=== PATIENT | male | born 1960 | race Caucasian/White ===

== ENCOUNTER 2024-02-18 09:44 | Outpatient (CLI) | payer OTHER, SELFPAY ==
--- NOTE | ~2024-02-18 | CT_ITS ---
CT Scan of the Chest without Contrast: Clinical Indication: Lung cancer screening, nicotine dependence Technique: Contiguous sections were acquired throughout the chest without intravenous contrast. Dose reduction technique was used on this scan by utilizing automated exposure control and iterative recon struction technique. The dose-length product (DLP) was 78.42 mGy-cm. Findings: There is no evidence of any significant mediastinal, hilar or axillary lymphadenopathy. Severe molina ry artery calcifications. There is no evidence of pleural or pericardial effusion. The lungs are clear. No pulmonary nodules or infiltrates are noted. Probable minimal emphysema. Images through the upper abdomen reveal no abnormalities. Impression: Lung RADS 1: Negative. 12 month follow-up screening CT advised. Reviewed, dictated and finalized at location . Impression: Lung RADS 1: Negative. 12 month follow-up screening CT advised.
== END 2024-02-18 09:45 | disposition home or self-care (01) ==
LOC: MICIMG 09:47
PROVIDERS: PCP Family Medicine Adolescent Medicine; Visit Provider Family Medicine
DX: Z12.2 Encounter for screening for malignant neoplasm of respiratory organs (principal); Z87.891 Personal history of nicotine dependence
CPT/HCPCS: 71271

== ENCOUNTER 2025-03-07 04:27 | Day surgery (SDC) | payer OTHER, SELFPAY ==
[2025-02-23 08:41] VITALS: BMI 22.8
--- OUTSIDE RECORDS SUMMARY | 2025-03-07 04:30 | XMS_ITS ---
Author Organization Unknown ENCOUNTERS Encounter Performer Location Date Diagnosis Diagnosis Status Outpatient [place] [id number] [facility] [address] [place] [id number] *Note: Encounters from your own facility or health system may be excluded. Allergies, Adverse Reactions, Alerts Allergen Type Severity Identification Date Penicillins drug allergy 4 [id number] Medications Name Date Quantity Days Supplied GPI Number
[2025-03-07 09:10] VITALS: BP 141/74; PULSE 78; RESP 18; TEMP 36.3; O2SAT 98; BMI 22.0
[2025-03-07] MEDS: LACTATED RINGERS 1,000 ML 150 ML IV CONT (09:12)
--- NOTE | 2025-03-07 09:35 | P.PNAN_ITS ---
Anes - Initial Pre Proc Eval Procedure: Operation Date: 03/07/25 10:30 Proposed Procedures p Screening Colonoscopy - Mitch Núñez MD Date/Time: 03/07/25 09:35 Surgeon: Mitch Núñez MD Pre Op Diagnosis: screening/positive cologuard Patient Data Age: 64 Gender: M Height: 1.75 m Weight: 67.8 kg Last Vital Signs Temp 36.3 C L 03/07/25 09:10 Pulse 78 03/07/25 09:10 Resp 18 03/07/25 09:10 BP 141/74 H 03/07/25 09:10 Pulse Ox 98 03/07/25 09:10 O2 Del Method Room Air 03/07/25 09:10 Allergies Allergy/AdvReac Type Severity Reaction Status Date / Time Penicillins Allergy Severe STATES Verified 03/07/25 09:09 TOLD ALLERGY CHILD Home Medications ?Medication ?Instructions ?Recorded ?Confirmed ?Type No Home Medications 04/07/23 02/23/25 H istory Patient hx anesthesia problems: none Family hx anesthesia problems: none Results Review: All pre-operative results and documents have been reviewed as part of the pre- operative evaluation. [facility] Past Medical History Medical History Encounter for preventative adult health care examination Wellness examination Social History Social History Years smoked: 50 Smoking status: Current every day smoker Tobacco type: cigarettes Alcohol intake: current Drinks per week: 12 Substance use: current Substance use type: marijuana Other substance usage details: Daily Living arrangements: with family Spiritual care concerns: No Anes - Eval Final PreProcedure Day of Procedure 03/07/25 09:35 Patient weight: normal Heart: regular rate and rhythm Lungs: clear to auscultation Airway: Mallampati scale class II and other (edentulous) Neurological: alert and oriented Last oral intake: >/= 8 hours ASA classification: III Emergent: no Anesthetic plan: proceed Anesthesia type and monitoring: general GIVS and standard monitoring Results Review: All pre-operative results and documents have been reviewed as part of the pre- operative evaluation. Informed Consent: The patient's anesthetic plan and its attendant risks and benefits were discussed with the patient/family/POA. Questions were solicited and answers provided to the satisfaction of the patient/family/POA.
--- NOTE | 2025-03-07 09:52 | P.HP_ITS ---
History of Present Illness History of Present Illness Consent: Risks, benefits, and alternatives have been discussed and questions answered. Patient agrees to proceed with procedure. Chief complaint: screening/positive cologuard Narrative: Antwon Light is a 64 year old male here for first colonoscopy, + cologuard Review of Systems Review of Systems: All systems reviewed & are unremarkable except as noted in HPI and below PMFSH Past Medical History Medical History Encounter for preventative adult health care examination Wellness examination Social History Social History Years smoked: 50 Smoking status: Current every day smoker Tobacco type: cigarettes Alcohol intake: current Drinks per week: 12 Substance use: current Substance use type: marijuana Other substance usage details: Daily Living arrangements: with family Spiritual care concerns: No Meds Home Medications and Allergies Home Medications ?Medication ?Instructions ?Recorded ?Confirmed ?Type No Home Medications 04/07/23 02/23/25 H istory Allergies Allergy/AdvReac Type Severity Reaction Status Date / Time Penicillins Allergy Severe STATES Verified 03/07/25 09:09 TOLD ALLERGY CHILD Vital Signs Vital Signs - 24 hr 03/07/25 09:10 Temperature 97.4 F L Pulse Rate 78 Respiratory Rate 18 Blood Pressure 141/74 H Pulse Oximetry 98 Oxygen Delivery Room Air Exam Const: General: comfortable and no acute distress HENMT: Face/Nose/Sinus: Normal nares present Eyes: General: appearance normal, both eyes and all related structures Resp: Auscultation: clear to auscultation bilaterally Cardio: Rate: regular rate Rhythm: regular rhythm GI: Inspection: non-distended GI Palp: Yes Soft to palpation Skin: General skin exam: normal color Extrem: General: normal to inspection Psych: Mental Status: mental status grossly normal Assessment and Plan Assessment and plan (1) Positive colorectal cancer screening using Cologuard test: Code(s): R19.5 - Other fecal abnormalities Status: Acute Assessment and Plan: colonoscopy
--- NOTE | 2025-03-07 10:12 | S_PTH ---
PATIENT: Antwon Light LOC: [facility] Tomas#:[id number] AGE/SX: 64/M ROOM: RE03/07/[address]: Mitch Núñez MD : 1960 BED: DIS: 03/07/2025 SPEC #: [id number] RECD: 03/07/25 11:25 STATUS: JASSI REWilliam #: [id number] YUSRA: 03/07/25 10:[address]: Mitch Núñez DEPT: [facility] [place] Surgical RECD BY: Asia Cifuentes ENTERED: 03/07/25 11:26 SP TYPE: Surgical OTHR DR: Damián Melgar MD Tissues: A - Colon Polypectomy B - Colon Polypectomy C - Colon Polypectomy Procedures: Hematoxylin and Eosin Stain Gross and Microscopic Level 4
[2025-03-07 10:15] VITALS: BP 111/72; PULSE 66; RESP 18; O2SAT 95
[2025-03-07 10:25] VITALS: BP 118/69; PULSE 54; RESP 18; O2SAT 97
[2025-03-07 10:35] VITALS: BP 128/86; PULSE 56; RESP 18; O2SAT 97
== END 2025-03-07 10:58 | disposition home or self-care (01) ==
PROVIDERS: PCP Family Medicine Adolescent Medicine; Referring Provider Nurse Practitioner Family; Visit Provider Internal Medicine Gastroenterology
PROC: 0DJD8ZZ Inspection of Lower Intestinal Tract, Via Natural or Artificial Opening Endoscopic (ICD-10-PCS; CPT 45378; principal; 2025-03-07 10:30)
DX: R19.5 Other fecal abnormalities (principal); D12.2 Benign neoplasm of ascending colon; D12.4 Benign neoplasm of descending colon; D12.5 Benign neoplasm of sigmoid colon; K64.8 Other hemorrhoids; K57.30 Diverticulosis of large intestine without perforation or abscess without bleeding; F17.210 Nicotine dependence, cigarettes, uncomplicated; F12.90 Cannabis use, unspecified, uncomplicated
CPT/HCPCS: 45385; 45380; 88305; J2003; J2704; J7120